=== PATIENT | female | born 1980 | race Two or more races ===

== ENCOUNTER 2024-06-20 08:16 | Emergency (ER) | payer OTHER ==
[~2024-06-20] VITALS: Ht 165.1 cm; Wt 55.3 kg
[~2024-06-20 08:16] MED LIST: MAXFE CAPLET1 EACH PO; PRENATAL 19 TA1 EACH PO; SYNTHROID150 MCG PO
[2024-06-20] MEDS ORDERED: SYNTHROID137 MCG PO (08:41)
== END 2024-06-20 11:08 | disposition home or self-care (01) ==
LOC: ER 08:17
DX: M25.562 Pain in left knee (principal)